=== PATIENT | female | born 1955 | race Caucasian/White ===

== ENCOUNTER → 2022-05-09 14:51 | Outpatient (CLI) | payer MEDICARE, OTHER, SELFPAY ==
--- NOTE | 2022-05-09 14:56 | DI.MG.S_ITS ---
BILATERAL DIGITAL SCREENING MAMMOGRAM 3D/2D WITH CAD: 05/09/2022 CLINICAL: Routine screening. Comparison is made to exams dated: 08/31/2017 mammogram - outside location and 06/17/2014 mammogram - [facility]. There are scattered areas of fibroglandular density in both breasts (category b / 25%-50% glandular tissue). Current study was also evaluated with a Computer Aided Detection (CAD) system. No significant masses, calcifications, or other findings are seen in either breast. There has been no significant interval change. IMPRESSION: NEGATIVE There is no mammographic evidence of malignancy. A 1 year screening mammogram is recommended. Based on the Tyrer Cuzick model (a risk assessment model) the patient's lifetime risk is 6.6% and her 10 year risk is 3.7%. According to the ACR, ACS, and NCCN guidelines, an annual breast MRI exam along with mammogram is recommended if the patient's lifetime risk is 20% or greater. This exam was interpreted at Station ID: [id number]. NOTE: For mammograms, a report in lay terms will be sent to the patient. Approximately 15% of breast malignancies will not be visualized mammographically. In the management of a palpable breast mass, a negative mammogram must not discourage biopsy of a clinically suspicious lesion. Electronically Signed By: Jojo donald/eliezer:05/11/2022 09:22:48 letter sent: Normal Exam ACR BI-RADS Category 1: Negative 3341F
== END ==
PROVIDERS: PCP Family Medicine; Referring Provider Family Medicine; Visit Provider Family Medicine
DX: Z12.31 Encounter for screening mammogram for malignant neoplasm of breast (principal)
CPT/HCPCS: 77063; 77067

== ENCOUNTER → 2022-08-15 14:36 | Outpatient (CLI) | payer MEDICARE, OTHER, SELFPAY ==
--- NOTE | 2022-08-15 14:37 | DI.US.S_ITS ---
PROCEDURE: US PELVIC COMPLETE INDICATIONS: Uterovaginal prolapse, unspecified TECHNIQUE: Real-time scanning was performed of the pelvic organs, with image documentation. Additional endovaginal scanning was necessary due to incomplete visualization of the adnexal and endometrial structures by transabdominal scanning. COMPARISON: None. FINDINGS: Uterus: Uterus is anteverted and normal in size at 6.2 x 3.7 x 4.2 cm. The myometrium is heterogeneous. In the right anterior intramural region there is a 2.3 x 1.6 x 2.0 cm focus of heterogeneous echogenicity with calcification. The endometrium measures 4.3 mm combined thickness. Ovaries: Not visualized. Adnexal regions are unremarkable. Other: No pathologic free abdominal or pelvic fluid. IMPRESSION: Uterine heterogeneous echogenicity with calcification most suggestive of fibroid. We strive to produce accurate, complete, and clear reports of imaging services. To assist us in improving patient care, this report was composed using standard report templates and voice recognition software. Therefore, it may contain abnormal punctuation, insertions and/or omissions. Occasional wrong-word or sound-alike substitutions may occur. Though we review the report and make efforts to correct it, we do recommend that the report be read carefully in proper context to recognize any text inaccuracies. Dictated by: Gayathri Parrish M.D. on 08/15/2022 at 16:51 Approved by: Gayathri Parrish M.D. on 08/15/2022 at 16:52
== END ==
PROVIDERS: PCP Family Medicine; Referring Provider Nurse Practitioner; Visit Provider Nurse Practitioner
DX: N93.8 Other specified abnormal uterine and vaginal bleeding (principal); N81.4 Uterovaginal prolapse, unspecified
CPT/HCPCS: 76830; 76856

== ENCOUNTER 2024-01-30 08:54 | Day surgery (SDC) | payer MEDICARE, OTHER, SELFPAY ==
--- NOTE | 2024-01-30 | PATH_ITS ---
[facility] Accession Number: [id number] No. of containers..02 Tissue . 01 Material submitted: . PART A: colon - DESCENDING POLYP PART B: colon - TRANSVERSE POLYP . 01 Diagnosis: A. DESCENDING COLON, POLYP: Tubular adenoma. . B. TRANSVERSE COLON, POLYP: Tubular adenoma. Additional levels were examined. BREANA 02/02/2024 1801 Local . 01 Electronically signed: . Natasha Varela MD, Pathologist NPI- [id number] . 01 Gross description: . A. Received in formalin with two patient identifiers and descending colon polyp, is a beaulieu soft tissue fragment, 0.5 x 0.4 x 0.4 cm, bisected and submitted entirely in A1. B. Received in formalin with two patient identifiers and transverse colon polyp, is a beaulieu soft tissue fragment, 0.3 cm in greatest dimension. Submitted in B1. ([id number]) /MRV 01/31/2024 1825 Local . 01 Pathologist provided ICD-10: D12.4, D12.3 . 01 CPT . 274693, [id number] Specimen Comment: A courtesy copy of this report has been sent to [phone] Performed at: [address] [address], [place], [place] [id number] MD aLm Alegre MD Phone: [phone]
[2024-01-30 09:20] VITALS: BP 142/72; PULSE 76; RESP 18; TEMP 36.7; O2SAT 98
[2024-01-30] MEDS: LACTATED RINGERS 1,000 ML 42 ML IV (09:24)
--- NOTE | 2024-01-30 09:53 | PM.HP.1 ---
History of Present Illness History of Present Illness Date Patient Seen: 01/30/24 Time Patient Seen: 09:53 Chief complaint: Screening Colonoscopy Narrative: 68-year-old woman here for routine screening colonoscopy. Last colonoscopy 10 years ago normal. No family history of colon cancer. No abdominal concerns today. [facility] Medical History (Updated 01/30/24 @ 09:54 by Maurice Garcia MD) Wears glasses Chicken pox (~1960) Vertigo (~2020) Tinnitus (~2014) Hearing loss (~2014) Fibroids Surgical History (Updated 09/04/22 @ 20:49 by Joan Charles) Anesthesia Status post embolization of uterine artery (~2007) History of cholecystectomy (~1991) Family History (Updated 09/04/22 @ 20:52 by Joan Charles) Father History of heart disease Hypertension Mother History of heart disease Hypertension Sister History of heart disease Hypertension Sister Cancer Social History Smoking Status: Former smoker alcohol intake: current Meds Home Medications and Allergies Home Medications Medication Instructions Recorded Confirmed Type amlodipine 5 mg tablet 5 mg PO DAILY 09/05/22 01/30/24 History clobetasol 0.05 % topical cream 1 applic topical DAILY 09/05/22 09/05/22 History olmesartan 20 mg tablet 10 mg PO DAILY 09/05/22 01/30/24 History clobetasol 0.05 % topical ointment 1 applic topical .twice weekly #30 09/06/22 Rx grams estradiol 0.01% (0.1 mg/gram) 0.5 - 1 g vaginal 01/30/24 History vaginal cream levothyroxine 50 mcg tablet 50 mcg PO DAILY 01/30/24 01/30/24 History Allergies Allergy/AdvReac Type Severity Reaction Status Date / Time No Known Drug Allergies Allergy Verified 01/30/24 09:11 Exam Vital Signs (past 8 hours): - 01/30/24 09:20 Temperature 98.0 F Pulse Rate 76 Respiratory Rate 18 Blood Pressure 142/72 H Pulse Oximetry 98 Oxygen Delivery Method Room Air Oxygen Delivery Method Room Air Narrative Exam Narrative: General adult woman alert oriented no acute distress Chest nonlabored respiration Extremities warm well perfused Assessment & Plan Assessment and plan (1) Screening for colon cancer: Status: Acute Assessment & Plan narrative: The patient requires colorectal screening and colonoscopy is recommended. Technical details were discussed. Risks, benefits, alternatives explained. Risks including but not limited to myocardial infarction, aspiration, bleeding, pain, missed lesion, incomplete examination, need for further radiographic studies, intestinal injury, and need for major abdominal surgery were discussed. All questions were answered to their satisfaction, and they are in agreement with this plan. Time-Based Coding :: [TOTAL MINUTES] spent with patient and on the chart (including review of chart, obtaining history, exam, reviewing outside data, placing orders, documenting exam and treatment plan, and counseling patient) on [DATE].
--- NOTE | 2024-01-30 09:54 | P.OP.COLON_ITS ---
Operative Date/Time/Diagnoses Date of procedure: 01/30/24 Time of procedure: 09:54 Pre-op diagnosis: Colorectal screening Procedure & Clinicians Study performed: Screening colonoscopy Same procedure as scheduled: Yes Indications: Screening Surgeon: Maurice Garcia Procedure Notes Procedure in detail: The history and physical was performed/updated and the patient is ASA class is 2. The procedure was discussed in detail with the patient. Potential risks complications including infection, bleeding, missed diagnosis, perforation, need for surgery, and were explained. Their questions were answered and informed consent was obtained. Patient was brought to the procedure room and placed standard monitoring equipment. The patient's vital signs were monitored continuously throughout the entire procedure. Prior to starting time-out was performed. The patient was placed in the left lateral recumbent position. Procedural sedation was administered by anesthesia. Examination began with a thorough inspection of the perianal area there was no evidence of fissures, fistulae, external hemorrhoids or cutaneous malignancy. The colonoscopy scope was then placed into the anal canal and was advanced to the cecum, which was identified by the ileocecal valve, the appendiceal orifice and the confluence of the taenia. The scope was then slowly withdrawn examining colon thoroughly in all directions, irrigating it of any residual stool. The scope was retroflexed within the rectum The patient tolerated the procedure well. They will be discharged once criteria are met. The prep was of fair quality. The withdrawl time was 10 minutes. FINDINGS * Extensive diverticulosis * Pedunculated 8 mm polyp in descending colon removed with cold snare. * Transverse colon polyp 3 mm removed with biopsy forceps. * Internal hemorrhoids Specimen(s): other (Transverse and descending colon polyps) Impression: Colonic polyps x2 Diverticulosis Post-procedure Recommendations: High fiber diet Plan for aftercare: Follow up dependent on pathology findings Disposition: same day surgery
[2024-01-30 10:23] VITALS: BP 118/68; PULSE 69; RESP 20; TEMP 37.2; O2SAT 96
[2024-01-30 10:35] VITALS: BP 115/59; PULSE 67; RESP 20; TEMP 37.1; O2SAT 98
== END 2024-01-30 10:55 | disposition home or self-care (01) ==
PROVIDERS: PCP Nurse Practitioner; Referring Provider Surgery; Visit Provider Surgery
PROC: 0DJD8ZZ Inspection of Lower Intestinal Tract, Via Natural or Artificial Opening Endoscopic (ICD-10-PCS; CPT 45378; principal; 2024-01-30 10:15)
DX: Z12.11 Encounter for screening for malignant neoplasm of colon (principal); K57.30 Diverticulosis of large intestine without perforation or abscess without bleeding; K64.8 Other hemorrhoids; D12.4 Benign neoplasm of descending colon; D12.3 Benign neoplasm of transverse colon
CPT/HCPCS: 45385; 45380; J2704